=== PATIENT | male | born 1935 | race Caucasian/White ===

== ENCOUNTER 2016-12-04 13:32 | Inpatient (IN) | payer MEDICARE, OTHER ==
[~2016-12-04] VITALS: Ht 182.9 cm; Wt 77.0 kg
[2016-12-04 15:47] VITALS: BP 119/56; PULSE 83; TEMP 97.8
[2016-12-04] MEDS ORDERED: DEPAKENE 250 MG/1 ML PO (16:26)
[2016-12-04] MEDS ORDERED: TYLENOL 500MG500 MG PO (16:27)
[2016-12-04] MEDS ORDERED: LASIX 40MG TABL40 MG PO (16:27)
[2016-12-04] MEDS ORDERED: FLOMAX 0.40.4 MG/CAP PO (16:27)
[2016-12-04] MEDS ORDERED: MIRALAX PA17 GM/Dose PO (16:28)
[2016-12-04] MEDS ORDERED: COZAAR 50MG50 MG/TAB PO (16:28)
[2016-12-04] MEDS ORDERED: ROXANOL 20MG20 MG/ML PO (16:29)
[2016-12-04] MEDS ORDERED: SENOKOTXTRA17.2 MG PO (16:30)
[2016-12-04] MEDS ORDERED: SINEMET CR1 UDTAB.S1 PO (16:31)
[2016-12-04 16:32] LABS: BASO # 0.1 (0.0-0.2); BASO % 0.5 % (0.0-2.0); EOS % 0.4 % (0-4.0); GRAN # 7.2 (1.4-6.5); GRAN % 78.2 % (42.2-75.2); LYMPH # 1.1 (1.2-3.4); LYMPH % 12.3 % (20.0-51.0); MEAN CELL VOLUME 116 fl (80.0-100.0); MEAN CORPUSCULAR HGB CONC 33 g/dl (33.0-37.0); MEAN PLATELET VOLUME 10.8 fl (7.4-10.4); MONO # 0.8 (0.1-0.6); MONO % 8.1 % (1.7-9.3); PLATELET COUNT 333 K/mm3 (130-400); RED BLOOD COUNT 3.11 M/mm3 (4.20-5.60); REDCELL DISTRIBUTION WIDTH-CV 12.1 % (11.5-14.5); WHITE BLOOD COUNT 9.2 K/mm3 (4.8-10.8)
[2016-12-04] MEDS ORDERED: ASPIRIN 81M81 MG/TA2 PO (16:32)
[2016-12-04 16:33] LABS: HEMATOCRIT 36.2 % (42.0-52.0); HEMOGLOBIN 11.9 g/dl (13.5-18.0); MEAN CORPUSCULAR HEMOGLOBIN 38 pg (27.0-31.0)
[2016-12-04 16:38] LABS: INR 1.2 (0.8-3.0); PROTHROMBIN TIME 12.9 SECONDS (9.7-12.8)
[2016-12-04 16:43] LABS: ADJUSTED CALCIUM 9.2 mg/dL (8.4-10.2); ALBUMIN 3.3 gm/dL (3.5-5.0); BILIRUBIN,TOTAL 2.1 mg/dL (0.0-1.0); CALCIUM 8.6 mg/dL (8.4-10.2); POTASSIUM 3.6 mmol/L (3.4-5.0); TOTAL PROTEIN 7.1 gm/dL (6.4-8.2)
[2016-12-04 16:53] LABS: CREATININE, serum 0.69 mg/dL (0.66-1.25)
[2016-12-04 21:14] VITALS: BP 136/48; PULSE 65; TEMP 97.5
[2016-12-05] VITALS (13 sets, daily range): BP systolic 94–133; BP diastolic 43–94; PULSE 55–96; TEMP 97.1–98.7
[2016-12-05 07:23] LABS: BASO # 0.1 (0.0-0.2); BASO % 0.6 % (0.0-2.0); EOS # 0.1 (0.0-0.7); EOS % 1.3 % (0-4.0); GRAN # 6.1 (1.4-6.5); HEMOGLOBIN 12.2 g/dl (13.5-18.0); LYMPH # 1.7 (1.2-3.4); LYMPH % 18.9 % (20.0-51.0); MEAN CELL VOLUME 117 fl (80.0-100.0); MEAN CORPUSCULAR HEMOGLOBIN 39 pg (27.0-31.0); MEAN CORPUSCULAR HGB CONC 33 g/dl (33.0-37.0); MEAN PLATELET VOLUME 11.2 fl (7.4-10.4); MONO # 0.9 (0.1-0.6); MONO % 9.7 % (1.7-9.3); PLATELET COUNT 289 K/mm3 (130-400); RED BLOOD COUNT 3.15 M/mm3 (4.20-5.60); REDCELL DISTRIBUTION WIDTH-CV 12.4 % (11.5-14.5); WHITE BLOOD COUNT 8.8 K/mm3 (4.8-10.8)
[2016-12-05 07:26] LABS: HEMATOCRIT 36.7 % (42.0-52.0)
[2016-12-05 07:38] LABS: CALCIUM 8.6 mg/dL (8.4-10.2); CREATININE, serum 0.62 mg/dL (0.66-1.25)
[2016-12-05 07:47] LABS: POTASSIUM 4.4 mmol/L (3.4-5.0)
[2016-12-06] VITALS (7 sets, daily range): BP systolic 66–136; BP diastolic 50–93; PULSE 79–105; TEMP 96.6–98.3
[2016-12-06 10:28] LABS: HEMATOCRIT 27.1 % (42.0-52.0)
[2016-12-06 10:44] LABS: CALCIUM 8.2 mg/dL (8.4-10.2); CREATININE, serum 0.69 mg/dL (0.66-1.25); POTASSIUM 3.4 mmol/L (3.4-5.0)
[2016-12-07 05:21] VITALS: BP 125/60; PULSE 82; TEMP 98
[2016-12-07 09:18] LABS: HEMATOCRIT 28.1 % (42.0-52.0); HEMOGLOBIN 9.4 g/dl (13.5-18.0)
[2016-12-07 09:21] LABS: CALCIUM 8.3 mg/dL (8.4-10.2); CREATININE, serum 0.5 mg/dL (0.66-1.25); MAGNESIUM 2.1 mg/dL (1.6-2.3); POTASSIUM 3.7 mmol/L (3.4-5.0)
[2016-12-07 10:09] VITALS: BP 142/56; PULSE 74; TEMP 97.8
[2016-12-07 14:10] VITALS: BP 139/67; PULSE 81
[2016-12-07 17:49] VITALS: BP 114/39; PULSE 68; TEMP 98.4
[2016-12-07 22:15] VITALS: BP 104/47; PULSE 64; TEMP 97.9
[2016-12-08 05:34] VITALS: BP 138/48; PULSE 71; TEMP 98.1
[2016-12-08 07:21] LABS: HEMATOCRIT 25.1 % (42.0-52.0); HEMOGLOBIN 8.6 g/dl (13.5-18.0)
[2016-12-08 07:32] LABS: CREATININE, serum 0.47 mg/dL (0.66-1.25); POTASSIUM 3.1 mmol/L (3.4-5.0)
[2016-12-08] MEDS ORDERED: ASPI325T6 PO (08:20)
[2016-12-08] MEDS ORDERED: OYSCO 500500 M1 PO (08:21)
[2016-12-08] MEDS ORDERED: VITAMINC500CH PO (08:22)
[2016-12-08] MEDS ORDERED: DULCOLAX S10 MG/SUPP RC (08:22)
[2016-12-08] MEDS ORDERED: DUO-KAPS1 CAP PO (08:22)
[2016-12-08] MEDS ORDERED: SEROQUEL 2525 MG/TAB PO (08:58)
[2016-12-08] MEDS ORDERED: NORCO 325 MG-51 TAB PO (09:03)
[2016-12-08 09:22] LABS: MAGNESIUM 1.8 mg/dL (1.6-2.3)
[2016-12-08 09:37] VITALS: BP 97/67; PULSE 87; TEMP 98.2
[2016-12-08 11:14] VITALS: BP 97/67; PULSE 87; TEMP 98.2
== END 2016-12-08 13:19 | DRG 470 ==
LOC: MEDICAL 13:32 → SURG 15:30
PROVIDERS: Internal Medicine; Orthopaedic Surgery; Orthopaedic Surgery Sports Medicine; Physician Assistant
PROC: 0SRS0J9 Replacement of Left Hip Joint, Femoral Surface with Synthetic Substitute, Cemented, Open Approach (ICD-10-PCS; principal; 2016-12-05 07:30)
DX: S72.002A Fracture of unspecified part of neck of left femur, initial encounter for closed fracture (principal); F05 Delirium due to known physiological condition; E87.0 Hyperosmolality and hypernatremia; W18.30XA Fall on same level, unspecified, initial encounter; I10 Essential (primary) hypertension; G20 Parkinson's disease; G30.9 Alzheimer's disease, unspecified; F02.80 Dementia in other diseases classified elsewhere, unspecified severity, without behavioral disturbance, psychotic disturbance, mood disturbance, and anxiety; D50.0 Iron deficiency anemia secondary to blood loss (chronic); E87.6 Hypokalemia
CPT/HCPCS: 99223-AI; 99232-AI; 99233-AI; 99239; A9284; C1776; J0690; J1100; J1940; J2270; J2405; J2704; J2795; J3010; J7030; J7070